=== PATIENT | female | born 1940 | race Caucasian/White ===

== ENCOUNTER 2018-10-22 05:36 | Inpatient (IN) ==
[2018-10-22] MEDS ORDERED: Chlorhexidine Gluconate 2% 1 Pack (2 Cloths) TOPICAL ONE (06:06)
[2018-10-22] MEDS ORDERED: Metoprolol Tartrate 25 MG Tablet PO ONE (06:06)
[2018-10-22] MEDS ORDERED: Sodium Chlor 0.9% Inj 60 ML, Bupivacaine Liposo PF 1.3% Inj 20 ML, Bupivacaine/Epi PF 0... P-ARTICULR SCH ×3 (06:07)
[2018-10-22] MEDS ORDERED: Chlorhexidine 4% Topical 120 APPLIC/120 ML Bottle TOPICAL SCH (06:15)
[2018-10-22] MEDS ORDERED: Sodium Chlor 0.9% Inj 500 ML IV.SIG SCH (07:00)
[2018-10-22] MEDS ORDERED: ceFAZolin 2 GM Premix Inj 2 GM/50 ML PIGGYBACK IV.SIG SCH (07:00)
[2018-10-22] MEDS ORDERED: Vancomycin Inj 1,000 MG in Sodium Chlor 0.9% Inj 250 ML IV.SIG SCH (07:00)
[2018-10-22] MEDS ORDERED: TRANEXAMIC ACID IV.SIG SCH (07:00)
[2018-10-22] MEDS ORDERED: SODIUM CHLOR 0.9% IV.SIG SCH (07:00)
[2018-10-22] MEDS ORDERED: Neostigmine Inj 5 MG/5 ML Syringe IV.PUSH ONE (07:12)
[2018-10-22] MEDS ORDERED: Metoprolol Inj 5 MG/5 ML Vial IV.PUSH ONE (07:12)
[2018-10-22] MEDS ORDERED: Lidocaine PF 1% Inj 5 ML Syringe OTHER ONE (07:12)
[2018-10-22] MEDS ORDERED: Glycopyrrolate Inj 1 MG/5 ML Syringe IV.PUSH ONE (07:12)
--- NOTE | 2018-10-22 09:33 | P.OP ---
- Preoperative Diagnosis (1) Osteoarthritis of left hip - Postoperative Diagnosis (1) Osteoarthritis of left hip Date of procedure: 10/22/18 Procedure: Left total hip arthroplasty, direct anterior exposure Anesthesia: GETA, local Surgeon: Solis Jiang MD Pre Owned Sales Manager: Mikayla Mauricio PA-C Operation and Findings: EBL: 500 cc INDICATION: This patient is a 78-year-old female who is 7 years status post right hip replacement. The left hip is showing progressive signs of deterioration with collapse of the femoral head likely consistent with avascular necrosis. Despite extensive conservative care, the patient is painful and symptom medic. She now presents for elective hip replacement arthroplasty NOTE: Mikayla Mauricio PA-C was present for the entire surgical procedure as my first aid nurse. In my medical opinion her skill and care was necessary for the proper management of this patient. COMPONENTS: COMPANY: [employer] CUP: Ellinger, 50 mm, sector cup STEM: Corail, size 11, standard offset HEAD: 32 mm, +5, metal LINER: Altrex, 32 mm, neutral PROCEDURE: This patient was brought to the operating room and anesthetized in the supine position. The patient was positioned on the Karval table with the operative leg extended and the contralateral leg held in proper position. The hip and leg was scrubbed with alcohol followed by Hibiclens followed by ChloraPrep and draped sterilely in the clean air suite. Preoperative fluoroscopic images were utilized. A templating x-ray was obtained and printed to be used during the case. A timeout was done and antibiotics were given within a routine time window. A 4 inch incision was made starting 2 cm distal and 2 cm lateral to the anterior superior iliac spine. The tensor fascia fay fascia was identified and opened longitudinally in line with the incision. Deep retraction allowed good visualization in the interval between the tensor fascia fay and the rectus and this was opened further. The posterior fascia was opened. Crossing vessels were coagulated appropriately. The anterior aspect of the hip capsule was identified. Retractors were placed above and below the capsule. The capsule was opened longitudinally. Stay sutures were utilized creating flaps for the anterior capsule. The femoral neck was cut at the right location and completed with an oscillating saw. The head and neck was removed and taken to the back table. The leg was externally rotated 60 degrees and traction placed on the extremity. The labrum was excised. A portion of the capsule was excised. Visibility was excellent. Retractors were positioned. Starting 6 mm from the final size reamer, we began reaming up to 1 mm from the anticipated size. This was visualized under fluoroscopy. A trial cup was positioned. This also was visualized under fluoroscopy and minor adjustments were made. The final preparation with a 50 reamer was utilized. The final cup was positioned in approximately 40 degrees of abduction and 20 degrees of forward flexion. This is visualized under fluoroscopy and was seated into the final position. Position was very satisfactory. A single dome screw was positioned without complication. A single hole eliminator was positioned followed by the plastic liner. The final solution was excellent. Traction was let off. The leg was brought into neutral rotation. A lifting took was positioned underneath the greater trochanter and proximal femur. The leg was maximally externally rotated and the foot drop to the floor across midline. Retractors were positioned. A box osteotome was used to gain entrance into the top of the femur. The canal was probed with a finder to ensure that we were within the canal. Successive broaching up to the final stem size was accomplished. Trial reduction showed excellent balancing. Adjustments were made. The wound was irrigated copiously and the canal irrigated. The final stem was inserted in proper orientation. A final trial reduction was performed, and the final head was impacted. The hip was reduced and with 60 degrees of external rotation the leg to be dropped to the floor without evidence of anterior subluxation. Intraoperative x-rays were obtained. Local anesthesia was utilized for a field block including posterior capsule, inferior capsule, cephalad capsule, region of the greater trochanter, tensor fascia fay and subcutaneous tissue. The anterior capsule was repaired with interrupted #2 Tycron sutures. The fascia was run with 0 PDS on a loop. Subcutaneous tissue was approximated 2-0 Vicryl suture and skin with running intradermal 3-0 Vicryl followed by benzoin and Steri-Strips. A sterile dressing was applied. The patient was awakened and taken to the recovery room in satisfactory condition FINDINGS: There was severe loss of femoral head size related to collapse from severe inflammatory arthritis versus avascular necrosis. The final solution appeared excellent. There was no complication appreciated
--- NOTE | 2018-10-22 09:34 | P.DCO ---
- Physical Therapy Physical Therapy: Gait training (Physical therapy 3 times per week for 2 weeks) Hip: Total hip, Protocol: Left Left Lower Extremity Weight Bearing: Weight bearing as tolerated - Case Management Consult Case Management Consult-Home Health: Yes - Certification Need for Home Health services: I have seen patient Elicia Bassett on 10/22/18. My clinical findings support the need for the requested home health care services because: Need for Home Health Services: High risk of falls Homebound Certification: I certify that my clinical findings support that this patient is homebound because: Homebound Certification: Unsteady gait/balance
[2018-10-22] MEDS ORDERED: Post-op Orders (for Pharmacy) OTHER STA (09:54)
[2018-10-22] MEDS ORDERED: Morphine Inj 4 MG/ML Vial ONE (10:00)
[2018-10-22] MEDS ORDERED: Morphine Inj 4 MG/ML Vial IV.PUSH PRN (10:00)
[2018-10-22] MEDS ORDERED: Bisacodyl 10 MG Supp RECTAL PRN (10:00)
[2018-10-22] MEDS ORDERED: Temazepam 15 MG Capsule PO PRN (10:00)
[2018-10-22] MEDS ORDERED: fentaNYL Citrate Inj 100 MCG/2 ML Ampul ONE (10:00)
[2018-10-22] MEDS ORDERED: *morphine SULFATE 4 MG/ML PERIprocedure ONLY ONE (10:13)
[2018-10-22] MEDS ORDERED: diphenhydrAMINE HCl 50 MG/ML VIAL IV.PUSH ONE (10:19)
[2018-10-22] MEDS ORDERED: *Meperidine Inj 25 MG/ML Vial PERIprocedural Use ONLY ONE (10:26)
[2018-10-22] MEDS ORDERED: ceFAZolin Inj 1 GM Vial (Addvantage) IV.SIG ONE (13:04)
--- NOTE | 2018-10-22 13:57 | XR ---
EXAM DATE: 10/22/2018 1:44 PM EST AGE/SEX: 78 years / Female INDICATIONS: Left total hip replacement. CLINICAL DATA: This is the patient's initial encounter. Patient reports that signs and symptoms have been present for 1 day and indicates a pain score of Nonresponsive. MEDICAL/SURGICAL HISTORY: Non-responsive. Non-responsive. COMPARISON: No prior exams available for comparison. FINDINGS: 2 intraoperative views demonstrates a left total hip arthroplasty in good position. No fractures iden tified. There is no complication. CONCLUSION: Status post left total hip arthroplasty without complication Electronically signed by: Jerry Madden MD Board Certified Radiologist 10/22/2018 1:56 PM EST
--- NOTE | 2018-10-22 18:15 | P.DS ---
Date of admission: 10/22/18 05:36 Primary care physician: Kyler Guerra Attending physician on discharge: Solis Jiang Anticipated date of discharge: 10/23/18 Brief History from admission: Ms. Bsasett has had increasing left leg pain for 3-4 months. Her primary care physician referred her to orthopaedics where xrays were obtained showing AVN of her left hip. She was already reliant on a cane and her function was rapidly declining. Surgical treatment was recommended once medical clearance was obtained in the form of left total hip arthroplasty, anterior approach. She agreed and now presents for the above. DS: Diagnosis - Discharge Diagnosis (1) Avascular necrosis of bone of left hip Status: Acute DS: Medications - Discharge Medications Prescriptions: aspirin 81 mg PO BID 30 Days #60 tab hydrocodone-acetaminophen 1 tab PO Q4H PRN #42 tab PRN Reason: Acute Pain DS: Summary Hospital Course: Surgical treatment was performed on the day of admission without complication. The patient recovered well in PACU and was transferred to the orthopedic floor. Pain was controlled with IV and oral medications. She was compliant with physical therapy and all total hip precautions. After 1 day she was found to be stable and discharged home with home therapy. She was educated to pursue high-fiber diet, to continue her therapy, and to ice the operative hip twice daily. She was given prescriptions for Sayre and aspirin. - Time Spent with Patient Total time spent providing and/or coordinating discharge services: Less than 30 minutes - Quality: VTE Deep Vein Thrombosis/Pulmonary Embolism Present on Admission: No Exam Vital signs: Vital Signs 10/22/18 06:53 10/22/18 09:52 10/22/18 10:00 Temperature 98.2 F 97.4 F L Pulse Rate 100 H 88 62 Respiratory Rate 18 21 11 L Blood Pressure 137/90 149/80 H 122/63 Pulse Oximetry 99 100 100 10/22/18 10:15 10/22/18 10:30 10/22/18 10:45 Temperature Pulse Rate 60 64 63 Respiratory Rate 12 12 12 Blood Pressure 124/64 131/72 125/74 Pulse Oximetry 100 100 100 10/22/18 11:00 10/22/18 11:15 10/22/18 11:30 Temperature 97.6 F Pulse Rate 65 63 Respiratory Rate 12 14 Blood Pressure 129/61 93/69 L Pulse Oximetry 98 96 94 L 10/22/18 12:00 10/22/18 12:30 10/22/18 13:00 Temperature Pulse Rate 66 65 63 Respiratory Rate 8 L 12 12 Blood Pressure 101/62 107/62 111/67 Pulse Oximetry 91 L 95 95 10/22/18 13:50 10/22/18 14:00 10/22/18 14:30 Temperature 98.7 F Pulse Rate 88 66 101 H Respiratory Rate 23 12 22 Blood Pressure 123/73 117/66 Pulse Oximetry 100 100 10/22/18 15:57 10/22/18 18:04 Temperature 98.4 F Pulse Rate 70 Respiratory Rate 16 18 Blood Pressure 114/69 Pulse Oximetry 98 Intake & Output 10/21/18 10/22/18 10/22/18 18:59 06:59 18:59 Intake Total 1450 / 1450 Output Total 500 / 500 Balance 950 / 950 Weight 80.5 kg Intake: IV 250 / 250 Vancomycin Inj 1,000 MG In NS 250 / 250 Inj 250 ML @ 250 mls/hr IV.SIG [facility] Rx#:[id number] Anesthesia Amount 1200 / 1200 Output: Estimated Blood Loss 500 / 500 Other: # Voids 1 Date of Last Bowel Movement 10/20/18 Weight On Admission 80.5 kg Results Procedures completed during hospitalization: Left total hip arthroplasty, anterior approach Labs on day of discharge: Labs from last 24 hours 10/22/18 06:40 Blood Type A Positive Blood Type Recheck Required Antibody Screen Negative - Impressions ITS Impressions Hip X-Ray 10/22/18 00:00 CONCLUSION: Status post left total hip arthroplasty without complication Discharge Plan - Discharge Disposition Patient Disposition: W/Home Health Service - Discharge Condition Condition: Good - Discharge Order Discharge Orders: Discharge Order (Routine); Ordered 10/23/18 Ordered By: Solis Jiang - Physicians Team Primary Care Provider: Kyler Guerra Attending Provider: Solis Jiang Other Providers: [facility],Agency - Rxs /Orders / Referrals /Forms Prescriptions: New aspirin 81 mg Tablet,Chewable 81 mg PO BID 30 Days Qty: 60 RF: 0 hydrocodone-acetaminophen 7.5-325 mg Tablet 1 tab PO Q4H PRN (Reason: Acute Pain) Qty: 42 RF: 0 Continue etodolac 400 mg Tablet 400 mg PO BID gabapentin 300 mg Capsule 300 mg PO BID levothyroxine [Synthroid] 75 mcg Tablet 75 mcg PO DAILY Ambulatory Orders / Order Sets / DME: Adjustable Commode 3-in-1 (1 each) (Routine) Location: Determined by Patient Ordered By: Solis Jiang Walker With Front Wheels (1 each) (Routine) Location: Determined by Patient Ordered By: Solis Jiang Referrals: Solis Jiang MD [Physician] - See Instructions ( Your appointment has been scheduled for 11/06/18[] at [0850 AM] If you cannot make this appointment, please call the office to reschedule ) Kyler Guerra MD [Primary Care Provider] - See Instructions - Discharge Instructions Patient Printed Instructions: Hydrocodone/Acetaminophen (By mouth), Laxative, Stool Softeners (By mouth), How to Choose and Use a Walker (GEN), Deep Vein Thrombosis (DC), Fall Prevention (DC) Additional Instructions: TAKE ALL MEDICATIONS PRESCRIBED. PLEASE NOTE THAT PAIN MEDICATIONS CAUSE CONSTIPATION. IT IS BEST TO USE OVER THE COUNTER STOOL SOFTENERS WHILE TAKING. MAKE TO TO SCHEDULE AND ATTEND ALL FOLLOW UP APPOINTMENTS. IF YOUR CONDITION WORSENS YOU MAY RETURN TO THE ED OR YOU MAY CALL YOUR PCP. - Post Discharge Care Plan Care Plan Goals: Discharge Care Plan Goals for LEFT Total Hip Replacement You had a hip replacement surgery. This means your natural hip was replaced with an artificial joint (prosthesis). You may be recovering at home or in a rehabilitation facility. Either way, you must take care of your new hip. Here are some goals to help you heal well. Directions to Meet your Goals: 1. Activity & Exercises: * Take pain medicine as directed by your doctor. * Dont drive until your doctor says its OK. And never drive while taking opioid pain medicine. * Wear the support stockings you were given in the hospital as directed by your surgeon. * Dont sit for more than 30 to 45 minutes at one time. * Dont lean forward while sitting. * Dont cross your legs. * Keep your feet flat on the floor. Dont turn your foot or leg inward. This stresses your hip joint. * Use an elevated toilet seat for 6 weeks after surgery. * Nap if you are tired, but dont stay in bed all day. * Sit on a firm cushion when you ride in a car and avoid sitting too low. Try not to bend your hip too much when getting in and out of the car. 2. Prevent Falls/Injury: * Follow your doctors orders regarding how much weight to put on the affected leg. * Dont bend at the hip when you bend over. Don't bend at the waist to put on socks and shoes. And avoid picking up items from the floor. * Use a cane, crutches, a walker, or handrails until your balance, flexibility, and strength improve. And remember to ask for help from others when you need it. * Free up your hands so that you can use them to keep balance. Use a lucien pack , apron, or pockets to carry things. * Arrange your household to keep the items you need handy. Keep everything else out of the way. * Remove items that may cause you to fall, such as throw rugs and electrical cords. * Use nonslip bath mats, grab bars, an elevated toilet seat, and a shower chair in your bathroom * Sit on a shower stool or chair when you shower to keep from falling. 3. Precautions: * Prevent infection. Any infection will need to be treated immediately. Call your doctor right away if you think you might have an infection. * Tell your dentist that you have an artificial joint and take antibiotics as prescribed before any dental work. * Tell all your healthcare providers about your artificial joint before any medical procedure. * Maintain a healthy weight. Get help to lose any extra pounds. Added body weight puts stress on the joints. 4. Incision Care: * Prevent infection by washing your hands often. If an infection occurs, it will need to be treated right away. * Call your doctor right away if you think you may have an infection. Symptoms include a fever or an incision that leaks white, green, or yellow fluid. * Don't soak your incision in water until your doctor says its OK. This means no hot tubs, bathtubs, or swimming pools. * Follow your doctor's instructions for changing the dressing. * Dont rub the incision, or apply creams or lotions to it. * If you notice any redness or drainage around the bandage site, contact your surgeon's office immediately. 5. Follow-Up: Do Not miss your follow-up appointment. Keep up with all your appointments and yearly check ups When to call your doctor: Call your doctor right away if you have: Hip pain gets worse Pain or swelling in your calf or leg not related to your incision Tenderness or redness in your calf Fever of 100.4F (38C) or higher, or as directed by your healthcare provider Shaking chills Swelling or redness at the incision site gets worse Fluid draining from the incision Call 911: Call 911 right away if you have: Chest pain Shortness of breath Any pain or tenderness in your calf
[2018-10-22] MEDS: CEFAZOLIN IV.SIG SCH (18:22)
[2018-10-22] MEDS: SODIUM CHLOR 0.9% IV.SIG SCH (18:22)
[2018-10-22] MEDS ORDERED: ceFAZolin Inj 1 GM in Sodium Chlor 0.9% Inj 100 ML IV.SIG ONE (18:22)
[2018-10-22] MEDS: Senna/Docusate Sodium 8.6/50 MG Tablet PO SCH (20:08)
[2018-10-22] MEDS: Gabapentin 300 MG Capsule PO SCH (20:08)
[2018-10-22] MEDS: Multivitamin/Minerals Therapeutic Tablet PO SCH (20:08)
[2018-10-22] MEDS: Etodolac 200 MG Capsule PO SCH ×2 (20:11→20:28)
[2018-10-22] MEDS ORDERED: ETODOLAC 400 MG PO SCH (21:00)
[2018-10-23] MEDS: SODIUM CHLOR 0.9% IV.SIG SCH (00:21)
[2018-10-23] MEDS ORDERED: ceFAZolin Inj 1 GM in Sodium Chlor 0.9% Inj 100 ML IV.SIG ONE (00:21)
[2018-10-23] MEDS: CEFAZOLIN IV.SIG SCH (00:21)
[2018-10-23] MEDS ORDERED: Levothyroxine 75 MCG Tablet PO SCH (06:00)
[2018-10-23 06:19] LABS: Hematocrit 33.8 % (35.0-46.0)
[2018-10-23] MEDS: Gabapentin 300 MG Capsule PO SCH (09:31)
[2018-10-23] MEDS: Senna/Docusate Sodium 8.6/50 MG Tablet PO SCH (09:31)
[2018-10-23] MEDS: Multivitamin/Minerals Therapeutic Tablet PO SCH (09:32)
--- NOTE | 2018-10-23 13:21 | P.PNOP ---
Subjective Interval history: Doing well. Pain increased last night but was given morphine and improved. Less pain this morning. Would prefer discharge home today. Son is flying in to assist today. Physical Exam Vital signs: Vital Signs 10/22/18 13:50 10/22/18 14:00 10/22/18 14:30 Temperature 98.7 F Pulse Rate 88 66 101 H Respiratory Rate 23 12 22 Blood Pressure 123/73 117/66 Pulse Oximetry 100 100 10/22/18 15:57 10/22/18 18:04 10/22/18 20:25 Temperature 98.4 F 98.0 F Pulse Rate 70 96 H Respiratory Rate 16 18 18 Blood Pressure 114/69 131/79 Pulse Oximetry 98 95 10/23/18 00:00 10/23/18 04:45 10/23/18 08:00 Temperature 97.9 F 98.4 F 97.7 F Pulse Rate 74 102 H 99 H Respiratory Rate 17 18 22 Blood Pressure 94/60 L 115/70 108/65 Pulse Oximetry 95 93 L 95 10/23/18 11:58 Temperature 98.1 F Pulse Rate 95 H Respiratory Rate 18 Blood Pressure 108/59 L Pulse Oximetry 95 Intake & Output 10/22/18 10/23/18 10/23/18 18:59 06:59 18:59 Intake Total 1550 / 1550 700 / 700 400 / 400 Output Total 500 / 500 Balance 1050 / 1050 700 / 700 400 / 400 Weight 80.5 kg Intake: IV 350 / 350 100 / 100 400 / 400 LR 1000 mL Inj 1,000 ML @ 80 400 / 400 mls/hr IV.CONT .[id number] [facility] Rx# :[id number] Vancomycin Inj 1,000 MG In NS 250 / 250 Inj 250 ML @ 250 mls/hr IV.SIG [employer] [facility] Rx#:[id number] Ancef Inj 1,000 GM In NS Inj 100 / 100 100 / 100 100 ML @ 200 mls/hr IV.SIG Q6H [facility] Rx#:[id number] Oral 600 / 600 Anesthesia Amount 1200 / 1200 Output: Estimated Blood Loss 500 / 500 Other: # Voids 1 1 # Incontinent Voids 1 Date of Last Bowel Movement 10/20/18 10/20/18 10/20/18 # Bowel Movements 0 Narrative: Laying in bed NAD LLE Hip dressing c/d/i, no drainage, mild swelling, no erythema +motor, +sens, +nvi Neg homans Results - Labs CBC & Chem 7: 10/23/18 05:00 Laboratory Results - last 24 hr 10/23/18 05:00 Hgb 12.0 Hct 33.8 L - Imaging Impressions Hip X-Ray 10/22/18 00:00 CONCLUSION: Status post left total hip arthroplasty without complication - Procedures Left total hip arthroplasty, anterior approach Assessment and Plan - Ortho Post Op Day # 1 - Problem List (1) Avascular necrosis of bone of left hip Code(s): M87.052 - Idiopathic aseptic necrosis of left femur Status: Acute - Assessment and Plan pod#1 s/p L LISANDRA, anterior Doing well. Pain improved. Ortho stable. Ok to d/c home w [facility] after PT today. [place] for pain. ASA 81mg PT - WBAT LLE. Anterior lisandra precautions. Hold dressing changes unless saturated. F/U in 2 weeks as scheduled.
== END 2018-10-23 15:24 | disposition home health service (06) | DRG 470 ==
LOC: HSDI 05:36 → N06 15:00
PROVIDERS: ADMIT Orthopaedic Surgery Orthopaedic Surgery of the Spine; ATTEND Orthopaedic Surgery Orthopaedic Surgery of the Spine
CPT/HCPCS: 73502; 76000; 85014; 85018; 86850; 86900; 86901; 94150; 97110; 97116; 97150; 97163; 97167; C1776; C9290; J0690; J1100; J1200; J1580; J2175; J2270; J2370; J2405; J2704; J2710; J3010; J3370; J7050; J7120